=== PATIENT | female | born 1980 | race Caucasian/White ===

== ENCOUNTER 2019-02-14 09:16 | Emergency (ER) | payer BC, OTHER ==
[2019-02-14] MEDS ORDERED: LORazepam 2 MG/ML INJ IV STA (10:16)
[2019-02-14] MEDS ORDERED: FAMOTIDINE 20 MG/2 ML VIAL IV STA (10:16)
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
[2019-02-14 10:41] LABS: Amorphous Sediment,Urine Rare /hpf; Appearance,Urine Cloudy (Clear); Bacteria,Urine Many /hpf; Bilirubin,Urine Negative (Negative); Blood,Urine Negative (Negative); Color,Urine Yellow; Glucose,Urine (UA) Negative (Negative); Ketones,Urine 2+ (Negative); Leukocyte Esterase,Urine Moderate (Negative); Mucus,Urine Rare /hpf; Nitrite,Urine Negative (Negative); PH, Urine 6.5 (5.0-8.0); Protein,Urine Trace (Negative); RBC,Urine 1 /hpf (0-5); Specific Gravity,Urine 1.015 (1.001-1.035); Squamous Epithelial Cell,Urine 16 /hpf (0-4); Urobilinogen,Urine <2.0 mg/dL (<2.0)
[2019-02-14 10:44] LABS: Amphetamine Screen,Urine Not Detected (NotDetected); Barbiturate Screen,Urine Not Detected (NotDetected); Benzodiazepines Screen,Urine Not Detected (NotDetected); Cocaine Screen,Urine Not Detected (NotDetected); Methadone Screen, Urine Not Detected (NotDetected); Opiate Screen,Urine Detected (NotDetected); Oxycodone Screen, Urine Not Detected (NotDetected); Phencyclidine Screen,Urine Not Detected (NotDetected); Tricyclic Antidepressant,Urine Not Detected (NotDetected); Urn Cannabinoid Scrn Not Detected (NotDetected)
[2019-02-14 10:49] LABS: ALT 19 U/L (9-52); AST 20 U/L (14-36); African American GFR (CKD) >90 (>60 ml/min/1.73 sqM); Albumin 4.1 g/dL (3.5-5.0); Alkaline Phosphatase 66 U/L (38-126); Anion Gap 13 mmol/L; Blood Urea Nitrogen 8 mg/dL (7-17); Calcium 9.9 mg/dL (8.4-10.2); Carbon Dioxide 18 mmol/L (22-30); Chloride 110 mmol/L (98-107); Creatine Kinase 40 U/L (30-135); Glucose 94 mg/dL (74-99); Magnesium 1.8 mg/dL (1.6-2.3); Potassium 3.7 mmol/L (3.5-5.1); Sodium 141 mmol/L (137-145); Total Bilirubin 0.6 mg/dL (0.2-1.3); Total Protein 7.5 g/dL (6.3-8.2)
[2019-02-14 10:51] LABS: Anisocytosis Slight; Basophils # (A) 0.1 k/uL (0-0.2); Basophils % (A) 1 %; Eosinophils # (A) 0.2 k/uL (0-0.7); Eosinophils % (A) 3 %; HCT 35.5 % (34.0-46.0); HGB 11.5 gm/dL (11.4-16.0); Hypochromasia Slight; Lymphocytes # (A) 2.1 k/uL (1.0-4.8); Lymphocytes % (A) 28 %; MCH 25.8 pg (25.0-35.0); MCHC 32.3 g/dL (31.0-37.0); MCV 79.8 fL (80.0-100.0); Mean Platelet Volume 7.1; Monocytes # (A) 0.5 k/uL (0-1.0); Monocytes % (A) 7 %; Neutrophils # (A) 4.2 k/uL (1.3-7.7); Neutrophils % (A) 58 %; Platelet Count 426 k/uL (150-450); RBC 4.45 m/uL (3.80-5.40); RDW 16.2 % (11.5-15.5); WBC 7.3 k/uL (3.8-10.6)
[2019-02-14 11:07] VITALS: PULSE 76
--- NOTE | 2019-02-14 11:26 | XR ---
EXAMINATION TYPE: XR KUB DATE OF EXAM: 02/14/2019 11:21 AM CLINICAL HISTORY: Chest and abdominal pain. TECHNIQUE: Two Upright KUB images of the abdomen are obtained. COMPARISON: Abdominal x-ray July 17, 2014.. FINDINGS: Scattered gas is seen in non-distended stomach and small bowel loops. Gas and fecal materia l is seen in non-distended colon and rectum. Cholecystectomy clips are seen. Lung bases are clear. Os seous structures are intact. IMPRESSION: Overall nonobstructive bowel gas pattern.
[2019-02-14] MEDS ORDERED: DICYCLOMINE 10 MG/ML 2 ML AMP IM STA (11:29)
[2019-02-14] MEDS ORDERED: MAG HYDROX/AL HYDROX/SIMETH 30 ML, HYOSCYAMINE ELIXIR 10 ML, CIMETIDINE HCL 300 MG PO STA ×3 (11:31)
--- NOTE | 2019-02-14 11:31 | XR ---
EXAMINATION TYPE: XR chest 2V DATE OF EXAM: 02/14/2019 COMPARISON: 12/17/2011 HISTORY: 38-year-old female with chest pain TECHNIQUE: PA and lateral views FINDINGS: Heart upper limits of normal in size. Aorta and pulmonary vasculature within normal limits. Mild cent ral peribronchial cuffing without consolidation, pneumothorax, or pleural effusion. IMPRESSION: Borderline heart size. Some central peribronchial cuffing could reflect bronchitis or asthma. Otherwi se, no acute process.
[2019-02-14 12:19] VITALS: BP 131/81; RESP 18; TEMP 98.2
== END 2019-02-14 12:15 | disposition home or self-care (01) ==
LOC: EC 09:16
DX: F41.0 Panic disorder [episodic paroxysmal anxiety] (principal); K58.9 Irritable bowel syndrome, unspecified; M79.7 Fibromyalgia; Z79.899 Other long term (current) drug therapy; Z88.1 Allergy status to other antibiotic agents; Z88.6 Allergy status to analgesic agent; Z88.5 Allergy status to narcotic agent; Z88.8 Allergy status to other drugs, medicaments and biological substances; Z87.891 Personal history of nicotine dependence
CPT/HCPCS: 36415; 93005; 80053; 82550; 83690; 83735; 85025; 81001; 81025; 80306; 87086; 71046; 74018; 99284; 96374; 96375; 96372; J2060; J0500

== ENCOUNTER 2019-02-22 07:03 | Emergency (ER) | payer OTHER ==
[2019-02-22 07:17] VITALS: RESP 18; TEMP 97.8
[2019-02-22] MEDS ORDERED: FAMOTIDINE 20 MG/2 ML VIAL IV STA (07:57)
[2019-02-22] MEDS ORDERED: SODIUM CHLORIDE 0.9% 1,000 ML IV STA (07:57)
[2019-02-22] MEDS ORDERED: ONDANSETRON 4 MG/2 ML VIAL IVP STA (07:57)
[2019-02-22] MEDS ORDERED: MAG HYDROX/AL HYDROX/SIMETH 30 ML, HYOSCYAMINE ELIXIR 10 ML, CIMETIDINE HCL 300 MG, LID... PO STA ×4 (07:57)
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
[2019-02-22] MEDS ORDERED: HYDROmorphone 0.5 MG/0.5 ML SYRINGE IVP STA (08:43)
[2019-02-22 08:44] LABS: ALT 21 U/L (9-52); AST 27 U/L (14-36); African American GFR (CKD) >90 (>60 ml/min/1.73 sqM); Albumin 3.9 g/dL (3.5-5.0); Alkaline Phosphatase 68 U/L (38-126); Amylase 38 U/L (30-110); Anion Gap 10 mmol/L; Appearance,Urine Cloudy (Clear); Bacteria,Urine Many /hpf; Bilirubin,Urine Negative (Negative); Blood Urea Nitrogen 8 mg/dL (7-17); Blood,Urine Negative (Negative); Carbon Dioxide 19 mmol/L (22-30); Chloride 111 mmol/L (98-107); Color,Urine Yellow; Glucose 107 mg/dL (74-99); Glucose,Urine (UA) Negative (Negative); Ketones,Urine Negative (Negative); Leukocyte Esterase,Urine Small (Negative); Mucus,Urine Occasional /hpf; Nitrite,Urine Negative (Negative); Protein,Urine Negative (Negative); RBC,Urine <1 /hpf (0-5); Sodium 140 mmol/L (137-145); Specific Gravity,Urine 1.025 (1.001-1.035); Squamous Epithelial Cell,Urine 5 /hpf (0-4); Total Bilirubin 0.4 mg/dL (0.2-1.3); Total Protein 7.2 g/dL (6.3-8.2); Urobilinogen,Urine <2.0 mg/dL (<2.0); WBC,Urine 2 /hpf (0-5)
[2019-02-22 08:45] LABS: Anisocytosis Slight; Basophils # (A) 0.1 k/uL (0-0.2); Basophils % (A) 1 %; Eosinophils # (A) 0.3 k/uL (0-0.7); Eosinophils % (A) 4 %; HCT 34.4 % (34.0-46.0); HGB 11.4 gm/dL (11.4-16.0); Hypochromasia Slight; Lymphocytes # (A) 1.9 k/uL (1.0-4.8); Lymphocytes % (A) 29 %; MCH 26.6 pg (25.0-35.0); MCHC 33.3 g/dL (31.0-37.0); Mean Platelet Volume 7.4; Monocytes # (A) 0.3 k/uL (0-1.0); Monocytes % (A) 5 %; Neutrophils # (A) 3.9 k/uL (1.3-7.7); Neutrophils % (A) 59 %; Platelet Count 411 k/uL (150-450); RDW 17.4 % (11.5-15.5); WBC 6.6 k/uL (3.8-10.6)
[2019-02-22 09:56] VITALS: BP 122/81; PULSE 89
== END 2019-02-22 10:08 | disposition home or self-care (01) ==
LOC: EC 07:03
DX: K29.00 Acute gastritis without bleeding (principal); Z32.02 Encounter for pregnancy test, result negative; K21.9 Gastro-esophageal reflux disease without esophagitis; K27.9 Peptic ulcer, site unspecified, unspecified as acute or chronic, without hemorrhage or perforation; M79.7 Fibromyalgia; Z79.899 Other long term (current) drug therapy; Z88.1 Allergy status to other antibiotic agents; Z88.5 Allergy status to narcotic agent; Z88.6 Allergy status to analgesic agent; Z88.8 Allergy status to other drugs, medicaments and biological substances; Z87.891 Personal history of nicotine dependence
CPT/HCPCS: 36415; 80053; 82150; 83690; 85025; 81001; 81025; 99284; 96374; 96375 ×2; 96361 ×2; J2405; J1170

== ENCOUNTER 2021-02-12 11:26 | Day surgery (SDC) | payer OTHER ==
[2021-02-06 16:34] VITALS: BMI 52.9
[~2021-02-12 11:26] MED LIST: HYDROmorphone 0.5 MG/0.5 ML SYRINGE IVP PRN; LACTATED RINGERS 1,000 ML IV SCH; LIDOCAINE 1% (10MG/ML) FOR IV START INTRADERMA PRN; MIDAZOLAM 2 MG/2 ML VIAL IV PRN; ONDANSETRON 4 MG/2 ML VIAL IVP ONE; Pre Op ABX Message 1 EACH MISC MISCELLANE ONE
[2021-02-12] MEDS ORDERED: SCOPOLAMINE 1.5MG/72HR PATCH TRANSDERM ONE (12:30)
[2021-02-12] MEDS ORDERED: fentaNYL (PF) 50 MCG/ML 2 ML AMP ONE (13:05)
[2021-02-12] MEDS ORDERED: MIDAZOLAM 2 MG/2 ML VIAL ONE (13:05)
[2021-02-12] MEDS ORDERED: PROPOFOL 10 MG/ML 20 ML VIAL IV ONE (13:05)
[2021-02-12] MEDS ORDERED: LIDOCAINE 1% INJ 10MG/ML (20 ML MDV) ONE (13:05)
[2021-02-12] MEDS ORDERED: SUCCINYLCHOLINE CHLORIDE VIAL 200 MG/10 ML VIAL IV ONE (13:05)
[2021-02-12] MEDS ORDERED: diphenhydrAMINE 50 MG/ML 1 ML VIAL ONE (13:05)
[2021-02-12] MEDS ORDERED: HYDROmorphone (PF) 1 MG/ML ONE (13:05)
[2021-02-12] MEDS ORDERED: ONDANSETRON 4 MG/2 ML VIAL ONE (13:05)
[2021-02-12] MEDS ORDERED: SODIUM CHLORIDE 0.9% 100 ML with ceFAZolin 2,000 MG IV ONE ×2 (13:10)
[2021-02-12] MEDS ORDERED: BUPIVACAINE (PF) 0.25% 30 ML VIAL SQ ONE ×2 (13:29→13:36)
--- NOTE | 2021-02-12 13:44 | P.OP ---
Date of Procedure: 02/12/21 Preoperative Diagnosis: Torn medial meniscus left knee Postoperative Diagnosis: 1. Torn medial meniscus left knee 2. Synovitis Procedure(s) Performed: 1. Arthroscopy of the left knee with partial medial meniscectomy (5% of meniscus excised) 2. Partial synovectomy of the medial femoral, lateral femoral, patellofemoral compartments Anesthesia: CARLITO Surgeon: Sourav Felton Estimated Blood Loss (ml): 5 Pathology: none sent Condition: stable Disposition: PACU Indications for Procedure: This is a 40-year-old female that my office with pain in her left knee. After discussing the surgical and nonsurgical treatment options with her at length, she was to proceed with arthroscopic debridement of her left knee and informed consent was obtained. Operative Findings: The operative findings are consistent with a torn medial meniscus and synovitis Description of Procedure: Patient was seen and evaluated in the preoperative area, the operative site was marked with a skin marker. The patient was then brought to the operating room and given 2 g of Ancef intravenously. A general anesthetic was administered by the anesthesia department. Tourniquet was placed on the right upper thigh and the left lower extremity was then prepped and draped in usual sterile fashion. A universal timeout was then performed confirming the patient's name, surgical site, ALLERGIES, and consent. The limb was then exsanguinated and tourniquet insufflated to 300 mmHg. Standard inferior medial and inferior lateral portals were established in the knee. The trochar was inserted in the inferolateral portal. Examination began at the patellofemoral joint. There was no evidence of chondral malacia of the patellofemoral compartment and a moderate amount of synovitis. Next the medial compartment was visualized. There was a tear of the posterior horn of the medial meniscus. There was no evidence of chondral malacia of the mediofemoral compartment and a mild amount of synovitis. The notch area was then visualized and the ACL was intact. The Lateral compartment was then visualized and the lateral meniscus was intact. There was no evidence of chondromalacia, but a mild amount of synovitis. Next, using an arthroscopic shaver and a biter, partial medial meniscectomy was performed stable margins. Approximately 5% of the meniscus was excised. A partial synovectomy is performed the medial femoral, lateral femoral, patello femoral compartments. Knee was then copiously irrigated, instruments removed, incisions were closed with 4-0 nylon. 30 mL of quarter percent plain Marcaine was injected sterilely into the surgical area. A sterile dressing was then applied, and the tourniquet was released. Patient was then transferred to recovery room in stable condition.condition.
[2021-02-12 13:53] VITALS: RESP 16; TEMP 97.7
[2021-02-12] MEDS: fentaNYL (PF) 50 MCG/ML 2 ML AMP IVP PRN ×2 (14:10→14:16)
[2021-02-12] MEDS ORDERED: HYDROcodone/APAP 7.5-325MG 1 EACH TAB ONE (14:58)
[2021-02-12] MEDS ORDERED: HYDROcodone/APAP 7.5-325MG 1 EACH TAB PO ONE (14:59)
[2021-02-12 15:16] VITALS: BP 113/74; PULSE 82
== END 2021-02-12 16:19 | disposition home or self-care (01) ==
LOC: OR 11:26
PROVIDERS: ATTEND Orthopaedic Surgery
DX: S83.242A Other tear of medial meniscus, current injury, left knee, initial encounter (principal); M65.9 Synovitis and tenosynovitis, unspecified; J45.909 Unspecified asthma, uncomplicated; F17.200 Nicotine dependence, unspecified, uncomplicated; M79.7 Fibromyalgia; M19.90 Unspecified osteoarthritis, unspecified site; F41.9 Anxiety disorder, unspecified; F90.9 Attention-deficit hyperactivity disorder, unspecified type; K21.9 Gastro-esophageal reflux disease without esophagitis
CPT/HCPCS: 29881; 81025; J2250; J0330; J1200; J2405; J0690; J2001; J3010; J1170; J2704

== ENCOUNTER 2021-02-24 09:08 | Emergency (ER) | payer OTHER ==
[2021-02-24 09:21] VITALS: BP 158/94; PULSE 102; RESP 18; TEMP 98.4
[2021-02-24] MEDS ORDERED: LORazepam 2 MG/ML INJ IM STA (09:37)
[2021-02-24] MEDS ORDERED: MORPHINE SULFATE 4 MG/ML SYRINGE IM STA (09:37)
--- NOTE | 2021-02-24 09:40 | ED ---
Nausea/Vomiting/Diarrhea HPI - General Chief complaint: Nausea/Vomiting/Diarrhea Stated complaint: Rash/Diarrhea Time Seen by Provider: 02/24/21 09:21 Source: patient, RN notes reviewed Mode of arrival: ambulatory Limitations: no limitations - History of Present Illness Initial comments: This a 40-year-old female presents emergency Department with chief complaint of joint pain. Patient states that she had recent knee surgery and states shortly after she developed sinus issues in which she was placed on antibiotics. Patient states she started having diarrhea shortly after antibiotics and a rash. She was seen at another ER facility yesterday was given steroids and something for the pain which has helped but states that her steroids cause anxiety to increase. Patient states that she needs something to calm down tonight. Suicidal or homicidal she states she is unable take her pain meds for her left knee surgery in which she has meniscus surgery Dr. Felton. Patient denies any fevers or chills no other complaints. - Related Data Home Medications Medication Instructions Recorded Confirmed diphenhydrAMINE [Benadryl] 50 mg PO TID PRN 02/08/14 02/12/21 Pregabalin [Lyrica] 150 mg PO TID 02/14/19 02/12/21 Acetaminophen [Tylenol Extra 1,000 mg PO Q6H PRN 02/06/21 02/12/21 Strength] [id number]-[id number] 2 each PO Q6HR PRN 02/06/21 02/12/21 [Excedrin] Cholestyramine (with Sugar) 2 gm PO DAILY 02/06/21 02/12/21 [Questran] Naproxen Sodium [Aleve] 440 mg PO DAILY 02/06/21 02/12/21 Omeprazole [PriLOSEC] 20 mg PO AC-BID PRN 02/06/21 02/12/21 Sucralfate [Carafate] 1 gm PO Q6HR PRN 02/06/21 02/12/21 Previous Rx's Medication Instructions Recorded Aspirin 325 mg PO BID 14 Days #28 tab 02/12/21 HYDROcodone/APAP 7.5-325MG [[place] 1 - 2 tab PO Q6H PRN #32 tab 02/12/21 7.5-325] Sennosides [Senokot] 2 tab PO DAILY PRN #60 tablet 02/12/21 Allergies Allergy/AdvReac Type Severity Reaction Status Date / Time banana Allergy ALLERGY Verified 02/12/21 12:09 TEST,HIVES ciprofloxacin [From Cipro] Allergy Anaphylaxis Verified 02/12/21 12:09 ciprofloxacin HCl Allergy Anaphylaxis Verified 02/12/21 12:09 [From Cipro] ketorolac tromethamine Allergy Dyspnea Verified 02/12/21 12:09 [From Toradol] metoclopramide HCl Allergy Dyspnea Verified 02/12/21 12:09 [From Reglan] prochlorperazine edisylate Allergy Dyspnea, Verified 02/12/21 12:09 [From Compazine] DYSTONIA prochlorperazine maleate Allergy DYSPNEA Verified 02/12/21 12:09 [From Compazine] AND DYSTONIA tramadol Allergy Dyspnea Verified 02/12/21 12:09 methylprednisolone AdvReac Psychosis Verified 02/12/21 12:09 [From Medrol] prednisone AdvReac Psychosis Verified 02/12/21 12:09 Review of Systems ROS Statement: Those systems with pertinent positive or pertinent negative responses have been documented in the HPI. ROS Other: All systems not noted in ROS Statement are negative. Past Medical History Past Medical History: Asthma, Fibromyalgia, GERD/Reflux, Osteoarthritis (OA) Additional Past Medical History / Comment(s): kidney stones , occipital neuritis. gastritis, MIGRAINE HEADACHE History of Any Multi-Drug Resistant Organisms: None Reported Past Surgical History: Cholecystectomy, Tonsillectomy Additional Past Surgical History / Comment(s): SINUS SURGERY X2, TEETH EXTRACTION, SEPTOPLASTY Past Anesthesia/Blood Transfusion Reactions: Postoperative Nausea & Vomiting (PONV) Past Psychological History: ADD/ADHD, Anxiety, Bipolar, Depression, Schizoaffective Disorder Smoking Status: Former smoker, Vaper Past Alcohol Use History: None Reported Past Drug Use History: None Reported - Past Family History Mother Family Medical History: No Reported History General Exam Limitations: no limitations General appearance: alert, in no apparent distress Head exam: Present: atraumatic, normocephalic, normal inspection Eye exam: Present: normal appearance, PERRL, EOMI. Absent: scleral icterus, conjunctival injection, periorbital swelling Respiratory exam: Present: normal lung sounds bilaterally. Absent: respiratory distress, wheezes, rales, rhonchi, stridor Cardiovascular Exam: Present: regular rate, normal rhythm, normal heart sounds. Absent: systolic murmur, diastolic murmur, rubs, gallop, clicks GI/Abdominal exam: Present: soft, normal bowel sounds. Absent: distended, tenderness, guarding, rebound, rigid Course Vital Signs 02/24/21 09:16 Temperature 98.4 F Pulse Rate 102 H Respiratory 18 Rate Blood Pressure 158/94 O2 Sat by Pulse 98 Oximetry Medical Decision Making - Medical Decision Making Patient history is for her joint pain, anxiety. She has no homicidal or suicidal ideation she does not want any other further workup she'll be dis charged in stable condition. Disposition Clinical Impression: Arthralgia, Anxiety Disposition: HOME SELF-CARE Condition: Stable Instructions (If sedation given, give patient instructions): Arthralgia (ED) Additional Instructions: Please return to the Emergency Department if symptoms worsen or any other concerns. Is patient prescribed a controlled substance at d/c from ED?: No Referrals: Hill Naranjo MD [Primary Care Provider] - 1-2 days Time of Disposition: 09:40
== END 2021-02-24 10:00 | disposition home or self-care (01) ==
LOC: EC 09:08
DX: F41.9 Anxiety disorder, unspecified (principal); M25.50 Pain in unspecified joint; R19.7 Diarrhea, unspecified; F31.9 Bipolar disorder, unspecified; F25.9 Schizoaffective disorder, unspecified; J45.909 Unspecified asthma, uncomplicated; M79.7 Fibromyalgia; K21.9 Gastro-esophageal reflux disease without esophagitis; G43.909 Migraine, unspecified, not intractable, without status migrainosus; Z87.891 Personal history of nicotine dependence
CPT/HCPCS: 99283; 96372 ×2; J2060; J2270

== ENCOUNTER → 2021-09-12 | Outpatient (CLI) | payer OTHER ==
--- NOTE | 2021-09-13 06:37 | MR ---
EXAMINATION TYPE: MR knee LT wo con DATE OF EXAM: 09/12/2021 COMPARISON: None. HISTORY: Lt knee pain and swelling, Hx of meniscus surgery TECHNIQUE: Multiplanar, multisequence imaging of the left knee is performed without IV contrast. FINDINGS: Suboptimal secondary to large body habitus. MEDIAL MENISCUS: Anterior and posterior horns are intact without tear. LATERAL MENISCUS: Anterior and posterior horns are intact without tear. CRUCIATE LIGAMENTS: The anterior and posterior cruciate ligaments are intact and unremarkable. COLLATERAL LIGAMENTS: The medial collateral ligament and lateral collateral ligament complex are inta ct and unremarkable. EXTENSOR MECHANISM: Visualized quadriceps and patellar tendons are intact. EFFUSION: No significant suprapatellar joint effusion. POPLITEAL CYST: No popliteal/jordan cyst. TRICOMPARTMENT SPACES: Mild to moderate tricompartment joint space loss. No significant spurring is s een. CARTILAGE: Cartilaginous loss is present in the medial tibiofemoral compartment. BONE MARROW SIGNAL: Heterogeneity consistent with red marrow reconversion. No suspicious edema. OTHER: No additional significant abnormality is appreciated. IMPRESSION: 1. No meniscal or ligamentous tear is seen. 2. Suboptimal study with mild to moderate degenerative changes greatest medial tibiofemoral compartme nt presumed product of osteoarthritis.
== END | disposition home or self-care (01) ==
LOC: RADMRIMAIN 07:59
PROVIDERS: ATTEND Orthopaedic Surgery
DX: M17.12 Unilateral primary osteoarthritis, left knee (principal)